=== PATIENT | female | born 1925 | race Caucasian/White ===

== ENCOUNTER → 2016-11-28 | Day surgery (SDC) | payer MEDICARE ==
[~2016-11-28] VITALS: Ht 157.5 cm; Wt 62.2 kg
[2016-11-28] VITALS (9 sets, daily range): BP systolic 133–175; BP diastolic 58–76; PULSE 16–87; RESP 13–16; O2SAT 92–99
[~2016-11-28] MED LIST: ACET-171 PO; ACET-97 PO; Bupivacaine-MPF 0.5% 30 mL Inj INJ ONE; CHOL200047 PO; DILT240C87 PO; Dexamethasone 4 mg/mL Inj IVPUSH PRN; Dexamethasone 4 mg/mL Inj ONE; EPHEDrine Sulfate 50 mg/mL Inj IVPUSH PRN; EPHEDrine/NS 5 mg/mL 5 mL Syringe ONE; GABA-500 PO; HYDR-4003 PO; HYDROmorphone 1 mg/mL Inj IVPUSH PRN; LEVO88TA4 PO; LISI-567 PO; LISI40TA PO; Lactated Ringer's 1,000 ML IV SCH; Lactated Ringer's 500 ML IV PRN; MULT-1007 PO; MetoCLOpramide 5 mg/mL 2 mL Inj IVPUSH PRN; MetoCLOpramide 5 mg/mL 2 mL Inj ONE; OMEP40CA36 PO; Ondansetron 2 mg/mL 2 mL Inj IVPUSH PRN; Ondansetron 2 mg/mL 2 mL Inj ONE; Phenylephrine 10,000 mCg/mL Inj IVPUSH PRN; Propofol 10,000 mCg/mL 20 mL Inj ONE; SALM50DI IH; SERT50TA9 PO; Succinylcholine Chloride 20 mg/mL 5 mL Inj ONE; TIOT18CA3 IH; TRAZ-118 PO; fentaNYL-PF 50 mCg/mL 2 mL Inj IVPUSH PRN; fentaNYL-PF 50 mCg/mL 2 mL Inj ONE; oxyCODONE-Acetamin 5-325 mg Tablet PO PRN
[2016-11-28] MEDS: Lactated Ringer's 1,000 ML IV SCH ×2 (07:53→10:00)
--- NOTE | 2016-11-28 08:55 | PCM.HPANE ---
Patient Data Date of Service: Nov 28, 2016 Surgeon Admitting Provider: Attending Provider:Jay Estrella MD Primary Care Physician:Florencia Martinez MD Other Provider:Basil Hernandez Anesthesia Reason for Visit Right Breast Cancer Ht/WT & BMI Height (Feet): 5 Height (Inches): 2 Weight (Kilograms): 62.2 Body Mass Index 25.00 Allergies Coded Allergies: atenolol (Verified Adverse Reaction, Intermediate, Bradycarida, 11/22/16) simvastatin (Verified Adverse Reaction, Intermediate, Muscle pain, 11/22/16 ) Past Anesthesia History Anesthesia History: Positive for:: Anesthesia Reactions (Epidural - nerve pain) , Denies:: Abnormal Airway, Difficult Intubation, Fam Anesthesia Reaction, Fam Malignant Hypertherm, Malignant Hyperthermia Diabetes History Hx Diabetes?: No MRSA MRSA: No Medications Blood Thinner: Coumadin Hypertension Medication: Yes (Lisinopril and diltiazem) Home Meds Incl Beta Amos: No Reported Medications Acetaminophen 500 Mg Tablet1,000 Mg PO BID PRN For Fever 11/28/16 Tiotropium [place] (Spiriva)18 Mcg Cap.w.dev18 Mcg IH DAILY #1 PKG Ref 0 11/22/16 Gabapentin 100 Mg Lfrtuwo196 Mg PO HS 30 Days Ref 0 11/22/16 Salmeterol Xinafoate (Serevent Diskus)50 Mcg/Puff Inhaler2 Puffs IH BID 11/16/16 Omeprazole 40 Mg Capsule.dr40 Mg PO BID Ref 0 11/16/16 Lisinopril 40 Mg Cvnadn67 Mg PO QAM 30 Days Ref 0 11/16/16 Trazodone 100 Mg Xunvur93 Mg PO HS Ref 0 03/08/15 Lisinopril 20 Mg Mxdpqv87 Mg PO HS 30 Days Ref 0 03/08/15 Cholecalciferol (Vitamin D3) (Vitamin D3)2,000 Unit Capsule2,000 Unit PO DAILY 11/03/14 Hydrocodone-Acetaminophen 5-325 mg 1 Each Tablet0.5 Tab PO Q4 PRN For Pain Ref 0 11/03/14 Sertraline HCl (Sertraline)50 Mg Kexahd70 Mg PO DAILY 30 Days Ref 0 04/21/14 Levothyroxine 88 Mcg Yfrgor86 Mcg PO DAILY 30 Days Ref 0 04/21/14 Diltiazem ER 240 Mg Capsule.er240 Mg PO DAILY 30 Days Ref 0 04/21/14 Discontinued Reported Medications Acetaminophen 500 Mg Tablet1,000 Mg PO TID 11/03/14 Multivitamin (Multi-Vitamin Daily)1 Each Tablet1 Each PO DAILY 04/21/14 Estradiol 0.025 mg/24 hr Patch 1 Each Patch.tdwk1 Patch TRANSDERM WEEKLY Ref 0 03/08/15 History History of ENT Problems?: Yes HEENT History: Positive for:: Cataracts (had surgery 20 years ago) Hearing Problem Denies:: Abnormal Airway Difficult Intubation Dysphagia Glaucoma Sinus Problem TMJ Denture Type: None Teeth Condition: Within Normal Limits Hx of Heart Problems?: Yes Cardiovascular History: Positive for:: Coronary Artery Disease Edema Heart Murmur (valve disorder) Hypertension Thrombophlebitis (DVT R calf August 2014) Denies:: AICD Abdominal Aortic Aneurism Atrial Fibrillation Cardiac Surgery Chest Pain Congestive Heart Failure Irregular Heartbeat Pacemaker Peripheral Vascular Rheumatic Fever Valvular Heart Disease Other Cardiac History: PROBABLE AORTIC STENOSIS ON EXAM - NO SYNCOPAL EPISODES Hx of Respiratory Problem?: Yes Respiratory History: Positive for:: COPD (mild-moderate. uses nebulizer in AM (not this morning) and albuterol prn) Dyspnea (with exertion) Use of Inhalers / NEBS Denies:: Asthma Chest Surgery Cough Emphysema Hemoptysis Oxygen Administration Pneumonia Pulmonary Embolism Tuberculosis Use of C-PAP Machine Hx Neurologic Problems?: No Neurological History: Positive for:: Dizziness Denies:: Alzheimer's Disease CVA Dementia Headaches (no migraines for years - resolved) Parkinson's Disease Seizures Hx of GI Problems?: Yes Gastrointestinal History: Positive for:: Gastroesphageal Reflux Gastrointestinal Bleeding Hiatal Hernia Hx of Problems?: Yes Genitourinary History: Denies:: HX of Hemodialysis Kidney Stones Urinary Tract Infection HX of Peritoneal Dialysis: No Female Hx: Positive for:: Problems with Breasts? Denies:: Currently Endometriosis Pelvic Inflammatory Skin History: Denies:: History Skin Disorders? Pressure Ulcers Hx Musculoskeletal Problems?: Yes Musculoskeletal History: Positive for:: Joint Replacement (R hip prosthesis) Osteoarthritis Denies:: Back Injury Degenerative Joint Fibromyalgia Musculoskeletal Trauma Myasthenia Gravis Rheumatoid Arthritis Systemic Lupus Hx of Psycho/Social Problems?: Yes Psycho Social History: Positive for:: Hx Depression Denies:: Anxiety Bipolar Disorder Suicide Attempt Hx Surgeries?: Yes (bowel resection, R hip) Hx Any Other Health Problems?: Yes Other History: Positive for:: Cancer (rt breast) Hospitalization Thyroid Disease (hypothyroid) Denies:: Endocrine Disease History Blood Transfusions: Positive for:: Accept Blood Products? Blood Transfusions Denies:: Blood Transfuse Reaction Hx Diabetes: No Hx Alcohol Use: NoHx Substance Use: No Smoking Status: Former Smoker Have You Smoked inLast 12 mo: No Stop/Bang Treated for Sleep Apnea?: No Do You Have a CPAP Machine?: No S-Snoring: Do You Snore Loudly: Yes T-Tired: feel tired, fatigued: Yes O-Obsered: Observed not breath: No P-Blood Pressure: treated: Yes B- Body Mass Index > 35 kg/m2: No A- Age over 50: Yes N- Neck Large Circumference: No G- Gender Male: No NISH Total Score: 4 NISH Risk Assessment: High Risk, =/>3 Yes NISH Category 2: Yes Risk Assessment Category Category 1A: Patient has history of documented sleep apnea, and HAS NOT received any narcotic, sedative or anesthesia administration during this stay. Category 1B: Patient has history of documented sleep apnea, and HAS received any narcotic , sedative or anesthesia administration during this stay Category 2: Patient has SUSPECTED Obstructive Sleep Apnea, and HAS received any narcotic , sedative or anesthesia administration during this stay. Category 3: Patient has SUSPECTED Obstructive Sleep Apnea and HAS NOT received narcotic, sedative or anesthesia administration during this stay. Category 4: Outpatient in Procedural Areas with known sleep apnea or who screen positive for High Risk via the STOP/BANG questionnaire. Exam Exam Vital Signs Vital Signs Date Time Temp Pulse Resp B/P Pulse Ox O2 Delivery O2 Flow Rate FiO2 11/28/16 08:23 36.1 69 16 175/68 98 Room Air General Appearance: Alert, Oriented X3, Cooperative, No Acute Distress HEENT/AIRWAY: MP 2, Neck Movement (FROM), Mouth Opening, Other (tmd3) Lungs: Diminished Heart: Regular Rate/Rhythm, Normal S1, Normal S2, Murmur (4/6 emilie) Meds/Labs/Diagnostics Admission Meds Current Medications Lactated Ringer's (Lr) 1,000 ml @ 120 mls/hr Q8H20M IV Last administered on t 07:53; Start 11/28/16 at 05:00; Stop 11/28/16 at 13:19 Plan Impression Patient chart reviewed, patient interviewed and anesthestic plan with risks, benefits, and alternatives discussed, and informed consent obtained. NPO per Anesth. Guidelines: Yes ASA Physical Status: ASA3 Severe Disease Anesthetic Plan: GA Bene/Risks/Altern/Consents: Yes HP Complete Prior to Induction: Yes Luan Sparrow MD Nov 28, 2016 08:54
--- NOTE | 2016-11-28 09:59 | DRSVH ---
PROCEDURE: NM SENTINEL NODE INJECTION ONLY, RIGHT BREAST RADIOPHARMACEUTICAL: 0.5 mCi Millipore filtered Tc-99m sulfur colloid. INDICATIONS: RIGHT BREAST CANCER PROCEDURE: The indications, alternatives, benefits, risks, and complications of the procedure were explained to the patient. Written informed consent was obtained and placed in the chart. The area around the nip ple was prepped and draped in a sterile fashion. Tc-99m sulfur colloid was injected in the outer edg e of the areola in the right breast. No image was obtained. IMPRESSION: Administration of radiotracer into the right breast periareolar region for intra-operati ve sentinel lymph node localization. Dictated by: Kip Tavera M.D. on 11/28/2016 at 9:56 Approved by: Kip Tavera M.D. on 11/28/2016 at 9:57
--- NOTE | 2016-11-28 12:11 | PCM.DISURG ---
Surgical Discharge Instruction Date of Service Nov 28, 2016 Dates of Hospitalization Date of Hospital Admission Providers Admitting Physician: Primary Care Physician: Florencia Martinez MD Attending Physician: Jay Estrella MD Diet Discharge Diet: No restrictions Activity Discharge Activity-General: No restrictions, Activity as pain allows, No driving while taking narcotic Dressing and Incisional Care Dressing Care: Other (The liquid skin glue will peel off starting in several days. ) Hygiene: May shower, DO NOT soak incision under water, NO bathtub, hot tub or whirlpool Additional Instructions Discharge Instructions Take tylenol around the clock (650 mg every 6 hours) for pain. Take oxycodone as needed for severe pain. Follow Up Plan Follow Up Plan Follow up with Dr. Estrella in 2 weeks. Call at any time with questions or concerns. Call your provider for: Fever, Chills, Wound redness, Increasing wound pain, Warmth to touch, Discharge @ incision, pus discharge Elvin Wray MD Nov 28, 2016 12:11
--- NOTE | 2016-11-28 13:46 | PCM.ANEP1 ---
Post Anesthesia PACU Phase 1 Assessment Date of Service: Nov 28, 2016 Vital Signs Vital Signs Date Time Temp Pulse Resp B/P Pulse Ox O2 Delivery O2 Flow Rate FiO2 11/28/16 12:47 81 16 133/58 92 Room Air 11/28/16 12:45 36.1 16 16 138/65 92 Room Air 11/28/16 12:35 84 16 144/76 97 Nasal Cannula 1 11/28/16 12:20 82 14 154/74 99 Nasal Cannula 3 11/28/16 12:15 87 13 160/76 97 Simple Mask 10 11/28/16 12:10 87 16 164/75 95 Simple Mask 10 11/28/16 12:05 37.0 85 16 172/74 97 Simple Mask 10 11/28/16 08:23 36.1 69 16 175/68 98 Room Air Anesthetic Administered: GA Level of Alertness: Awake, talking BLACKMON's with Equal Strength: Yes Pain: No Pain Scale Score: 0 Nausea or Vomiting: No CV Function & Hydration Stable: Yes Airway Device: none Oxygen Delivery: Simple Mask Lungs: Diminished Summary 11/28/16 12:47 81 16 133/58 92 Room Air PACU Phase 2 Assessment Complications: No Follow up Care: N/A Patient Instructions Provided: N/A Luan Sparrow MD Nov 28, 2016 13:46
--- NOTE | 2016-11-28 14:07 | OP ---
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 PROCEDURE: 1. Right axillary sentinel lymph node biopsy. 2. Oncoplastic right upper breast segmental mastectomy. SURGEON: Jay Estrella MD. APPLE PICKER: Herbert Weller MD. INDICATIONS: An 89-year-old female who recently was able palpate a right breast mass. A bilateral mammogram demonstrated a highly suspicious lesion in the right upper central breast and by percutaneous biopsy, it was proven to be an infiltrating carcinoma. She had no evidence clinically or radiographically of abnormal axillary nodes and after discussing options with the patient, it was elected to proceed with a segmental mastectomy and a right axillary sentinel lymph node biopsy. FINDINGS: The sentinel lymph node was easily found with counts greater than 300 within the node after it was excised with a background of 0. The palpable lesion was excised with clear gross margins. Both specimens were sent to Pathology. The sutures were placed into the specimen for margin orientation. DESCRIPTION OF PROCEDURE: At the beginning and end of the operation, the SCOAP checklist was completed. A general endotracheal anesthetic was induced. Using ChloraPrep, she was prepped and draped in the usual fashion. The sentinel node was done first. It was localized with the gamma probe. The incision was designed and infiltrated with 0.5% bupivacaine. The curvilinear incision was then made and using cautery, dissection was carried down to the node, which was easily identified with the counts as stated above and using cautery, its pedicle was divided. The wound was then closed with interrupted subcutaneous 3-0 Vicryl and interrupted deep dermal 3-0 Vicryl and running subcuticular 4-0 Vicryl. Attention was then turned to the right breast mass, which again was palpable and in the upper central right breast. An oncoplastic radial incision was designed, and an elliptical incision was then created and using cautery, the mass was excised with the findings as stated above. Sutures were placed identifying the superior margin with a short stitch and the lateral margin with a long stitch. The deep margin was grossly free as well. Hemostasis in the wound was ensured with cautery. The breast margins were then reapproximated with interrupted 3-0 Vicryl. The skin was then closed with interrupted deep dermal 3-0 Vicryl but then a superior Burow triangle was present. It was excised after designing the hockey-stick incision. The skin was then closed with running subcuticular 4-0 Vicryl. Dermabond was placed over both incisions. The estimated blood loss was less than 10 cc. There were no apparent complications. The final sponge, needle and instrument counts were announced as correct, and she was returned to the recovery room in stable condition. Critical assistance provided by Herbert Wray M.D. [facility]
== END | disposition home or self-care (01) ==
LOC: SAS 07:47
PROVIDERS: ATTEND Surgery
DX: C50.911 Malignant neoplasm of unspecified site of right female breast (principal); I25.10 Atherosclerotic heart disease of native coronary artery without angina pectoris; I10 Essential (primary) hypertension; J44.9 Chronic obstructive pulmonary disease, unspecified; R42 Dizziness and giddiness; K21.9 Gastro-esophageal reflux disease without esophagitis; K44.9 Diaphragmatic hernia without obstruction or gangrene; F32.9 Major depressive disorder, single episode, unspecified; Z17.0 Estrogen receptor positive status [ER+]; Z87.891 Personal history of nicotine dependence; Z88.8 Allergy status to other drugs, medicaments and biological substances; Z79.899 Other long term (current) drug therapy
CPT/HCPCS: 19301; 38525; 38792; A9541; J0330; J1100; J2250; J2405; J2765; J3010; J7120